=== PATIENT | male | born 1960 | race Caucasian/White ===

== ENCOUNTER 2016-12-27 09:06 | Emergency (ER) | payer OTHER ==
[2016-12-27 09:24] VITALS: BP 125/78
[2016-12-27] MEDS ORDERED: Ibuprofen TAB* 600 MG PO ONE (09:31)
--- NOTE | 2016-12-27 10:12 | RAD ---
Indication: Right ankle injury. 3 views of the ankle demonstrates spiral fracture of the distal fibula and avulsion of the medial malleolus. There may be a posterior malleolus fracture as well. IMPRESSION: Likely trimalleolar fracture right ankle.
--- NOTE | 2016-12-27 10:13 | UC ---
Lower Extremity/Ankle HPI - HPI Summary HPI Summary: 56 year old male with complaints right ankle pain. States he slipped while walking down stairs this am laterally twisting and falling onto his right foot. Unable to bear weight since the injury. Obvious swelling and bruising of ankle - History of Current Complaint Chief Complaint: UCLowerExtremity Stated Complaint: RIGHT ANKLE INJURY Time Seen by Provider: 12/27/16 10:01 Hx Obtained From: Patient Onset/Duration: Sudden Onset, Lasting Hours - 2, Still Present Severity Initially: Severe Severity Currently: Moderate Pain Scale Used: 0-10 Numeric - 5 s/p ibuprofen Aggravating Factor(s): Standing, Ambulation Alleviating Factor(s): Rest, Ice Able to Bear Weight: No - Risk Factors Gout Risk Factors: Age Over 40 DVT Risk Factors: Recent Trauma Septic Arthritis Risk Factor: Negative - Allergies/Home Medications Allergies/Adverse Reactions: Allergies Allergy/AdvReac Type Severity Reaction Status Date / Time No Known Allergies Allergy Verified 12/27/16 09:17 PMH/Surg Hx/FS Hx/Imm Hx Previously Healthy: Yes Endocrine History Of: Denies: Diabetes Cardiovascular History Of: Denies: Hypertension, Pacemaker/ICD GI/ History Of: Denies: Renal Disease - Surgical History Surgical History: Yes Surgery Procedure, Year, and Place: bilateral hip replaced. bilateral retinal surgery-NO METAL REPORT SCANNED INTO OTHER FACILITY OP REPORTS. BILATERAL CATARACT SURGERY. RIGHT ROTATOR CUFF REPAIR - Family History Known Family History: Negative: Hypertension, Diabetes, Blood Disorder - Social History Occupation: Employed Full-time Lives: With Family Alcohol Use: Occasionally Substance Use Type: None Smoking Status (MU): Never Smoked Tobacco Review of Systems Constitutional: Negative Skin: Bruising - right ankle Eyes: Negative ENT: Negative Respiratory: Negative Cardiovascular: Negative Gastrointestinal: Negative Genitourinary: Negative Motor: Decreased ROM - right ankle Neurovascular: Negative Musculoskeletal: Arthralgia - right ankle Neurological: Negative Psychological: Negative All Other Systems Reviewed And Are Negative: Yes Physical Exam Triage Information Reviewed: Yes Appearance: Well-Appearing, Well-Nourished, Pain Distress - right ankle elvated on chair with an ice pack. Vital Signs: Initial Vital Signs Temp 98.8 F 12/27/16 09:18 Pulse 104 12/27/16 09:18 Resp 18 12/27/16 09:18 BP 125/78 12/27/16 09:18 Pulse Ox 97 12/27/16 09:18 Vital Signs Reviewed: Yes Eyes: Positive: Conjunctiva Clear. Negative: Discharge ENT: Positive: Hearing grossly normal. Negative: Nasal congestion Neck: Positive: Supple, Nontender Respiratory: Positive: Lungs clear, Normal breath sounds Cardiovascular: Positive: RRR, No Murmur Musculoskeletal: Positive: Strength Intact - able to navigate with crutches well , ROM Limited @ - at right ankle. Good pedal pulses, cap refill less than 2 seconds. Good sensation to light touch throughout the right lower extremity, Edema @ - at right ankle lateral and medial. No pain with palpation over distal or proximal tib fib area Neurological: Positive: Alert, Muscle Tone Normal Psychological: Positive: Age Appropriate Behavior - pleasant and cooperative Skin: Negative: rashes, breakdown Lower Extremity Course/Dx - Course Course Of Treatment: right ankle xray. Ibuprofen for pain. Short leg splint to immobilize right ankle. Education - no weight bearing, splint care, crutches - Differential Dx/Diagnosis Differential Diagnosis/HQI/PQRI: Contusion, Fracture (Closed), Sprain Provider Diagnoses: Spiral fracture of the distal fibula. Avulsion of Medial Malleolus Discharge - Discharge Plan Condition: Stable Disposition: HOME Prescriptions: HYDROcodone/ACETAMIN 5-325 MG* [[place] 5-325 TAB*] 1 - 2 tab PO Q6H PRN #20 tab MDD 8 tabs PRN Reason: Severe Pain Patient Education Materials: Ankle Fracture (ED), Crutch Instructions (ED), RICE Therapy (ED), Splint Care (ED) Referrals: Juanita Carmen PA [Primary Care Provider] - Tang HASSAN,Marcell Prabhakar [Medical Doctor] - 5 Days
[2016-12-27] MEDS ORDERED: HYDROcodone/ACETAMIN 5-325 MG* 1 TAB PO ONE (11:01)
== END 2016-12-27 11:27 | disposition home or self-care (01) ==
LOC: UCCORT 09:06
DX: S82.441A Displaced spiral fracture of shaft of right fibula, initial encounter for closed fracture (principal); W10.9XXA Fall (on) (from) unspecified stairs and steps, initial encounter; Y92.9 Unspecified place or not applicable; Z96.643 Presence of artificial hip joint, bilateral; Z98.42 Cataract extraction status, left eye; Z98.41 Cataract extraction status, right eye
CPT/HCPCS: 99212; A9270-GY; G0463

== ENCOUNTER 2018-05-31 18:15 | Emergency (ER) | payer OTHER ==
[2018-05-31 18:30] VITALS: BP 135/75
[2018-05-31] MEDS ORDERED: Tetan/Diph/Pertus SYR(Tdap)* 0.5 ML SYR(BOOSTRIX) use SYR IM ONE (18:30)
--- NOTE | 2018-05-31 18:30 | UC ---
Skin Complaint HPI - HPI Summary HPI Summary: 57 yo male presents with right thumb ?FB for 1 week. He tells me that he works at [employer] around lots of different metals and metal shavings. About a week ago he thinks a piece of metal shaving lodged into his right thumb. Yesterday started having pain and noticed redness with swelling. Unsure date of last tetanus. Denies fever/chills. - History of Current Complaint Time Seen by Provider: 05/31/18 18:29 Stated Complaint: FOREIGN BODY RIGHT THUMB Hx Obtained From: Patient Onset/Duration: Gradual Onset Onset Severity: Mild Current Severity: Mild Pain Intensity: 3 Pain Scale Used: 0-10 Numeric - Allergy/Home Medications Allergies/Adverse Reactions: Allergies Allergy/AdvReac Type Severity Reaction Status Date / Time No Known Allergies Allergy Verified 05/31/18 18:26 Review of Systems Constitutional: Negative Skin: Other - Right thumb redness and swelling Respiratory: Negative Cardiovascular: Negative Neurovascular: Negative Musculoskeletal: Negative Neurological: Negative Psychological: Negative All Other Systems Reviewed And Are Negative: Yes PMH/Surg Hx/FS Hx/Imm Hx - Additional Past Medical History Additional PMH: None Previously Healthy: Yes - Surgical History Surgical History: Yes Surgery Procedure, Year, and Place: bilateral hip replaced. bilateral retinal surgery-NO METAL REPORT SCANNED INTO OTHER FACILITY OP REPORTS. BILATERAL CATARACT SURGERY. RIGHT ROTATOR CUFF REPAIR - Family History Known Family History: Positive: None Negative: Hypertension, Diabetes, Blood Disorder - Social History Occupation: Employed Full-time Lives: With Family Alcohol Use: Occasionally Substance Use Type: None Smoking Status (MU): Never Smoked Tobacco Physical Exam - Summary Physical Exam Summary: GENERAL: NAD. WDWN. No pain distress. SKIN: Right thumb: dorsally at the ulnar aspect of the nail/skin fold there is moderate erythema, edema, and white purulent matter underlying the skin. No obvious FB identified. No streaking, bleeding, or drainage. NECK: Supple. Nontender. No lymphadenopathy. CHEST: No accessory muscle use. Breathing comfortably and in no distress. CV: RRR. Without m/r/g. MSK: Right thumb FROM NEURO: Alert. CN II-XII grossly intact. PSYCH: Age appropriate behavior. Triage Information Reviewed: Yes Vital Signs: Vital Signs: Temp Pulse Resp BP Pulse Ox 99.4 F 90 15 135/75 98 05/31/18 18:23 05/31/18 18:23 05/31/18 18:23 05/31/18 18:23 05/31/18 18:23 Course/Dx - Course Course Of Treatment: XR: IMPRESSION: No definite radiopaque foreign body is noted. tdap updated today. A time out was performed, witnessed, and signed. The area was cleansed with an alcohol pad. The site of paronychia was lanced with a 23G needline. Copious purulent matter was able to be expressed. The wound was bandaged with a band-aid. Pt tolerated procedure well. - Diagnoses Provider Diagnoses: Paronychia right thumb Discharge - Sign-Out/Discharge Documenting (check all that apply): Discharge/Admit/Transfer - Discharge Plan Condition: Stable Disposition: HOME Prescriptions: Cephalexin CAP* [Keflex CAP*] 500 mg PO BID #14 cap Patient Education Materials: Paronychia (ED) Referrals: Juanita Carmen PA [Primary Care Provider] - Additional Instructions: If you develop a fever, shortness of breath, chest pain, new or worsening symptoms - please call your PCP or go to the ED. - Billing Disposition and Condition Condition: STABLE Disposition: Home
--- NOTE | 2018-05-31 19:16 | RAD ---
Indication: Evaluate for foreign body. 4 views of the thumb demonstrates no definite evidence of a radiopaque foreign body. No fractures identified. IMPRESSION: No definite radiopaque foreign body is noted.
== END 2018-05-31 19:40 | disposition home or self-care (01) ==
LOC: UCCORT 18:15
DX: L03.011 Cellulitis of right finger (principal)
CPT/HCPCS: 10060; 90471; 90715; 99212; G0463

== ENCOUNTER 2018-06-19 19:06 | Emergency (ER) | payer OTHER ==
[2018-06-19 19:34] VITALS: BP 127/79
--- NOTE | 2018-06-19 20:04 | UC ---
General HPI - HPI Summary HPI Summary: Patient presents complaining of increasing sore throat since this morning. He' s been treating with Chloraseptic lozenges without much relief. He notes that he and his think that his voice is little bit changed. He denies any difficulty with swallow or opening his mouth. He denies any associated fever or chills. - History of Current Complaint Chief Complaint: UCGeneralIllness Stated Complaint: SORE THROAT Time Seen by Provider: 06/19/18 19:39 Hx Obtained From: Patient Onset/Duration: Gradual Onset Timing: Constant Pain Intensity: 7 Aggravating: SWALLOWING Associated Signs & Symptoms: Negative: Fever, SOB - Allergy/Home Medications Allergies/Adverse Reactions: Allergies Allergy/AdvReac Type Severity Reaction Status Date / Time No Known Allergies Allergy Verified 05/31/18 18:26 Home Medications: Home Medications Phenol 1.4% [place]* [Chloroseptic Throat [place]*] 1 lozenge MT TID PRN 06/19/18 [ History Confirmed 06/19/18] PMH/Surg Hx/FS Hx/Imm Hx Previously Healthy: Yes - Surgical History Surgical History: Yes Surgery Procedure, Year, and Place: bilateral hip replaced. bilateral retinal surgery-NO METAL REPORT SCANNED INTO OTHER FACILITY OP REPORTS. BILATERAL CATARACT SURGERY. RIGHT ROTATOR CUFF REPAIR. Right ankle sx for spiral fx with pins - Family History Known Family History: Positive: None Negative: Hypertension, Diabetes, Blood Disorder - Social History Occupation: Employed Full-time Lives: With Family Alcohol Use: Occasionally Substance Use Type: None Smoking Status (MU): Never Smoked Tobacco - Immunization History Vaccination Up to Date: Yes Review of Systems Constitutional: Negative Skin: Negative Eyes: Negative ENT: Sore Throat Respiratory: Negative Cardiovascular: Negative Gastrointestinal: Negative Genitourinary: Negative Motor: Negative Neurovascular: Negative Musculoskeletal: Negative Neurological: Negative Psychological: Negative Is Patient Immunocompromised?: No All Other Systems Reviewed And Are Negative: Yes Physical Exam Triage Information Reviewed: Yes Appearance: Well-Appearing Vital Signs: Initial Vital Signs Temp 99.8 F 06/19/18 19:28 Pulse 85 06/19/18 19:28 Resp 18 06/19/18 19:28 BP 127/79 06/19/18 19:28 Pulse Ox 98 06/19/18 19:28 Vital Signs Reviewed: Yes Eyes: Positive: Conjunctiva Clear ENT: Positive: TMs normal, Other - The posterior pharynx is diffusely erythematous. There is mild swelling on the right with mild edema to the uvula and slight uvular shift to the left. Patient is having no difficulty with phonation or swallow and no evidence of trismus.. Negative: Nasal congestion, Nasal drainage Neck: Positive: Supple, Tenderness @ - There is some mild right anterior cervical adenopathy with tenderness. Respiratory: Positive: Lungs clear, Normal breath sounds, No respiratory distress Cardiovascular: Positive: RRR, No Murmur Abdomen Description: Positive: Nontender, No Organomegaly, Soft Bowel Sounds: Positive: Present Musculoskeletal: Positive: ROM Intact Neurological: Positive: Alert Psychological: Positive: Age Appropriate Behavior Skin Exam: Normal Diagnostics - Laboratory Diagnostic Studies Completed/Ordered: rapid strep=neg Course/Dx - Course Course Of Treatment: Patient's exam is consistent with a pharyngitis and mild sinus symptoms of a right peritonsillar abscess. ER transfer is been offered; however, patient is declining. He's been advised of risk for worsening disability and but is still declining. He is alert and oriented 3. He is able to make decisions thus I mustrespect his refusal of transfer. I will however continue to treat him with steroids, antibiotics and close follow-up. I strongly encouraged him to go to the ER at any time should he change his mind and for any worsening to which she agrees. He otherwise agrees to follow up with ENT in 2 days-this Thursday. A referral was given. - Differential Dx - Multi-Symptom Provider Diagnoses: Right peritonsillar abscess Discharge - Sign-Out/Discharge Documenting (check all that apply): Patient Departure - Discharge Plan Condition: Stable Disposition: HOME Prescriptions: Amoxicillin/Clavulanate TAB* [Augmentin TAB 875*] 875 mg PO BID #20 tab predniSONE TAB* [Deltasone 20 MG TAB*] 40 mg PO DAILY 5 Days #10 tab Patient Education Materials: Peritonsillar Abscess (ED) Referrals: Juanita Carmen PA [Primary Care Provider] - If Needed Kb Weaver MD [Medical Doctor] - 2 Days Additional Instructions: GO TO THE ER IMMEDIATELY FOR ANY CHANGES OR WORSENING. YOU MAY ALSO GO SOONER AT ANY TIME SHOULD YOU CHANGE YOUR MIND. - Billing Disposition and Condition Condition: STABLE Disposition: Home
[2018-06-19] MEDS ORDERED: Amoxicillin/Clavulanate TAB* 875 MG PO ONE ×2 (20:18)
[2018-06-19] MEDS ORDERED: Dexamethasone IV* 4 MG/ML 1 ML (4 MG) ONE (20:19)
== END 2018-06-19 20:37 | disposition home or self-care (01) ==
LOC: UCCORT 19:06
DX: J36 Peritonsillar abscess (principal)
CPT/HCPCS: 87651; 99213; A9270-GY; G0463; J1100